=== PATIENT | male | born 1980 | race African-American/Black ===

== ENCOUNTER 2024-08-14 20:02 | Inpatient (IN) ==
--- NOTE | 2024-08-14 20:32 | Emergency Department Note ---
Impression & Plan Epileptic seizure, Elevated troponin, D-dimer, elevated, Hypomagnesemia, Alcohol abuse ED Provider Note NAME: ANNE RIVERA AGE: 44 SEX: M : 1980 ARRIVES VIA: Ambulance INFORMANT: Patient ED PROVIDER(S): Lucho Yancey DO CHIEF COMPLAINT: Seizure HPI: Patient is a 44-year-old male who presents to the ER with past medical history of hypertension, cirrhosis and alcohol abuse who presents to the ER for seizure. He was at [facility] re[facility] for alcohol abuse. He notes he has been drinking about a 12 pack a day for the past several weeks. Last drink was Saturday. Denies any benzo abuse or any other drug abuse. No other drug use. He notes that he did lose control of his bladder and he did bite his tongue. Does not remember what happened. He does not remember anything before hand or after. He denies any chest pain or shortness of breath preceding or following the incident. ADDITIONAL HISTORY OBTAINED: Per HPI Chronic Medical/Social Conditions Affecting Care: Per HPI PAST MEDICAL HISTORY:See Below PAST SURGICAL HISTORY:See Below FAMILY HISTORY:See Below SOCIAL HISTORY:See Below HOME MEDICATIONS:See Below ALLERGIES:See Below VITALS:See Below PHYSICAL EXAMINATION: GENERAL: Sitting up in bed, alert, well appearing, well nourished, no distress, non-toxic EYE EXAM: normal conjunctiva. PERRL and EOM's grossly intact. OROPHARYNX: no exudate, no erythema, lips, buccal mucosa, bite pagan along the lateral aspect of the tongue and mucous membranes are moist NECK: supple, no nuchal rigidity, no adenopathy, non-tender LUNGS: Clear to auscultation. Normal chest wall mechanics HEART: no murmurs, S1 normal and S2 normal ABDOMEN: abdomen soft, non-tender, normo-active bowel sounds, no masses, no rebound or guarding. BACK: Back is symmetrical on inspection and there is no deformity, no midline tenderness, no CVA tenderness. SKIN: no rashes and no bruising UPPER EXTREMITIES: upper extremities are grossly normal. LOWER EXTREMITIES: No pitting edema. NEURO EXAM: Normal sensorium, cranial nerves II-XII grossly intact, normal speech, no gross weakness of arms, no gross weakness of legs. MEDICAL DECISION MAKING: Patient is a 44-year-old male who presents to the ER brought in from [facility] for a seizure. His last drink was on Saturday. IV was established medicos obtained. Labs show no significant leukocytosis. Mild anemia 12. D-dimer was elevated at 1500. BMP with slightly low CO2 of 20. Mag was low at 1.5. Mild transaminitis with an AST of 90. Initial troponin was 40. Lipase at 156. CT of the head and cervical spine was negative. Chest x-ray was clean. Patient upon arrival was tachycardic but he was not hypertensive. He was not tremulous or shaky. He is not diaphoretic. He was given IV fluids and heart rate trended down. Systolic pressures did improve from 100-1 10. He did start having some tremors in the hands and was given IV Valium. He was updated at bedside. Uncertain of the origin of the elevated troponin however upon my preliminary interpretation of the CT angio the chest there is no large PEs. Question possible infiltrates but read is pending upon admission to the hospitalist. Will cover with IV Rocephin. Consults/Care Managements Discussions: Per [facility] Triage Nursing notes reviewed. Limited review of prior medical records performed Vital Signs: reviewed and remarkable for tachycardic Differential diagnosis: Differential diagnosis includes etiologies such as infection, hypoglycemia, electrolyte abnormalities, cardiac sources, intracerebral event, trauma, toxicologic, neurologic, as well as others were entertained. ER treatment provided: See below Diagnostics interpreted by me include EKG and cardiac monitoring as listed below: -Cardiac Monitoring: An order was placed for continuous cardiac monitoring. The monitor shows a rate of 130 with sinus rhythm. -ECG: Sinus tachycardia rate of 125 Normal axis No PVCs Right bundle branch block Nonspecific ST wave changes in the inferior lateral leads QTc 476 -Laboratory studies:Interpreted by me as stated above in MDM and shown below. Imaging studies: Xrays: As interpreted by me: Portable AP upright 1 view of the chest shows no focal infiltrate CTs show: CT head and cervical spine was negative per radiology CT of the chest preliminary shows questionable infiltrates Procedures:none Critical Care: None Past Med/Surg History Problem List (Updated 08/14/24 @ 23:25 by Lucho Yancey DO) Alcohol abuse (Acute) Hypomagnesemia (Acute) D-dimer, elevated (Acute) Elevated troponin (Acute) Epileptic seizure (Acute) Social History Smoking Status: Current every day smoker Tobacco Type: Cigarettes Results & Data (ED) Vital Signs Vital Signs - 24 hr 08/14/24 20:09 08/14/24 20:11 08/14/24 20:14 Temperature 36.8 C Temperature Source Oral Pulse Rate 128 H 132 H Pulse Rate from SpO2 Sensor Respiratory Rate 24 Blood Pressure 100/80 100/80 Blood Pressure Mean 87 86 Pulse Oximetry 96 Oxygen Delivery Method Room Air Sepsis Recent Fever Within 48 Hours No Sepsis New/Unexplained Change in Mental Status No Sepsis Action Taken by Nursing Physician Notified 08/14/24 20:14 08/14/24 20:21 08/14/24 21:09 Temperature Temperature Source Pulse Rate 124 H 105 H Pulse Rate from SpO2 Sensor 123 H 106 H Respiratory Rate 26 H 26 H Blood Pressure 110/78 Blood Pressure Mean 88 Pulse Oximetry 96 99 Oxygen Delivery Method Room Air Sepsis Recent Fever Within 48 Hours Sepsis New/Unexplained Change in Mental Status Sepsis Action Taken by Nursing Laboratory Data 08/14/24 20:25 08/14/24 20:25 Lab Results 08/14/24 Range/Units 20:25 WBC 10.25 (4.8-10.8) K/ul RBC 4.37 L (4.70-6.10) M/uL Hgb 12.0 L (14.0-18.0) g/dl Hct 36.1 L (42.0-52.0) % MCV 82.6 (80.0-100.0) fL MCH 27.5 (25.0-34.0) pg MCHC 33.2 (32.0-36.0) g/dL RDW Std Deviation 61.3 H (36.4-46.3) fL RDW Coeff of John 20.7 H (11.5-14.5) % Plt Count 138 (130-400) K/uL MPV 10.8 (9.4-12.4) fL Immature Gran % (Auto) 1.1 % Neut % (Auto) 80.7 % Lymph % (Auto) 6.8 % [place] % (Auto) 10.2 % Eos % (Auto) 1.1 % Baso % (Auto) 0.1 % Neut # (Auto) 8.27 H (1.40-6.50) K/uL Lymph # (Auto) 0.70 L (1.20-3.40) K/uL [place] # (Auto) 1.05 H (0.11-0.59) K/uL Eos # (Auto) 0.11 (0.00-0.50) K/uL Baso # (Auto) 0.01 (0.00-0.20) K/uL Immature Gran # (Auto) 0.11 (0.01-0.20) K/uL Anisocytosis Present D-Dimer 1530 H* (0-500) ug/L FEU Sodium 133 L (136-145) mmol/L Potassium 3.6 (3.5-5.1) mmol/L Chloride 100 (98-107) mmol/L Carbon Dioxide 20 L (21-32) mmol/L Anion Gap 13 H (3-11) BUN 11 (6-23) mg/dl Creatinine 1.24 (0.6-1.4) mg/dl Est Cr Clr Drug Dosing 60.8 ml/min Est GFR ( Amer) 82.0 ml/min Est GFR (Non-Af Amer) 70.8 ml/min BUN/Creatinine Ratio 8.9 L (10-20) Glucose 109 H (70-99(Fasting)) mg/dl Calcium 9.4 (8.6-10.3) mg/dl Magnesium 1.5 L (1.7-2.4) mg/dl Total Bilirubin 0.3 (0.2-1.0) mg/dl AST 96 H (13-39) U/L ALT 58 H (7-52) U/L Alkaline Phosphatase 55 (34-104) U/L Troponin I High Sens 38.8 H (0-20) pg/ml Total Protein 7.1 (6.0-8.3) gm/dl Albumin 4.4 (3.4-5.0) gm/dl Globulin 2.7 (2.5-4.0) gm/dl Albumin/Globulin Ratio 1.6 (0.9-2) Lipase 156 H (11-82) U/L Administered Medications Magnesium Sulfate/Dextrose (Magnesium Sulfate / D5w) 1 gm in 100 mls @ 50 mls/hr IV Q2H LALITO Stop: 08/15/24 02:44 Last Admin: 08/14/24 22:54 Dose: 50 mls/hr Documented By: BS Discontinued Medications Diazepam (Diazepam 5 Mg/Ml 10ml Vial) 2.5 mg IV NOW STA Stop: 08/14/24 22:53 Last Admin: 08/14/24 23:11 Dose: 2.5 mg Documented By: CINTHIA Sodium Chloride (Nss) 1,000 mls @ 999 mls/hr IV .Q1H1M LALITO Stop: 08/14/24 22:30 Last Infusion: 08/14/24 23:05 Dose: Infused Documented By: Admin: 08/14/24 21:28 Dose: 999 mls/hr Documented By: Infusion: 08/14/24 21:28 Dose: Infused Documented By: Admin: 08/14/24 20:42 Dose: 999 mls/hr Documented By: CINTHIA Thiamine HCl 100 mg/ Syringe 10 mls @ 2 mls/min IV NOW STA Stop: 08/14/24 22:05 Last Admin: 08/14/24 22:44 Dose: 2 mls/min Documented By: BRAD Folic Acid 1 mg/ Syringe 10 mls @ 5 mls/min IV NOW STA Stop: 08/14/24 22:02 Last Admin: 08/14/24 22:44 Dose: 5 mls/min Documented By: BRAD Ioversol (Optiray 320 125ml) 120 ml IV ONCE ONE Stop: 08/14/24 21:45 Last Admin: 08/14/24 21:44 Dose: 120 ml Documented By: KIANA Multivitamins (Multivitamin Tab) 1 tab PO NOW STA Stop: 08/14/24 22:02 Last Admin: 08/14/24 22:44 Dose: 1 tab Documented By: BRAD Potassium Chloride (Potassium Chloride Crtab 20 Meq Tabcr) 40 meq PO NOW STA Stop: 08/14/24 22:43 Last Admin: 08/14/24 22:54 Dose: 40 meq Documented By: BRAD Imaging Data Radiologist's Impression: Cervical Spine CT 08/14/24 20:26 Exam(s): CT C SPINE EXAM: CT Cervical Spine Without Intravenous Contrast CLINICAL HISTORY: Reason for exam: fall. TECHNIQUE: Axial computed tomography images of the cervical spine without intravenous contrast. CTDI is 38.24 mGy and DLP is 1253.86 mGy-cm. Automated exposure control was utilized for the study. A dose lowering technique was utilized adhering to the principles of ALARA. COMPARISON: No relevant prior studies available. FINDINGS: Vertebrae: Unremarkable. No acute fracture. Discs/spinal canal/neural foramina: No acute findings. No spinal canal stenosis. Soft tissues: Unremarkable. IMPRESSION: Normal cervical spine CT. Electronically signed by: Lucho Nicholas MD 08/14/24 21:[address] 08/14/24 20:26 Exam(s): CT HEAD Without Contrast EXAM: CT Head Without Intravenous Contrast CLINICAL HISTORY: Reason for exam: fall/trauma. TECHNIQUE: Axial computed tomography images of the head/brain without intravenous contrast. CTDI is 38.24 mGy and DLP is 1253.86 mGy-cm. Automated exposure control was utilized for the study. A dose lowering technique was utilized adhering to the principles of ALARA. COMPARISON: No relevant prior studies available. FINDINGS: Brain: Unremarkable. No hemorrhage. No significant white matter disease. No edema. Ventricles: Unremarkable. No ventriculomegaly. Bones/joints: Unremarkable. No acute fracture. Soft tissues: Unremarkable. Sinuses: Unremarkable as visualized. No acute sinusitis. Mastoid air cells: Unremarkable as visualized. No mastoid effusion. IMPRESSION: Normal head/brain CT. Electronically signed by: Lucho Nicholas MD 08/14/24 21:54 PM Discharge Plan Visit Data Chief Complaint: Seizure Stated Complaint: Seizure ED Provider: Lucho Yancey Discharge Problem: Epileptic seizure, Elevated troponin, D-dimer, elevated, Hypomagnesemia, Alcohol abuse Forms Stand Alone Forms: [facility] Referrals Referrals: PCP,NO [Physician] -
[2024-08-14] MEDS: SODIUM CHLORIDE 0.9% 1,000 ML IV SCH (20:42)
[2024-08-14 20:58] LABS: Albumin Globulin Ratio 1.6 (0.9-2); Albumin Level 4.4 gm/dl (3.4-5.0); BUN Creatinine Ratio 8.9 (10-20); Bilirubin,Total 0.3 mg/dl (0.2-1.0); Calcium 9.4 mg/dl (8.6-10.3); Creatinine Clr Calc Pharmacy 60.8 ml/min; Est GFR (Non-African American) 70.8 ml/min; Globulin 2.7 gm/dl (2.5-4.0); Magnesium 1.5 mg/dl (1.7-2.4); Potassium 3.6 mmol/L (3.5-5.1); Total Protein 7.1 gm/dl (6.0-8.3)
[2024-08-14 21:00] LABS: Hematocrit (blood only) 36.1 % (42.0-52.0); Mean Corpuscular Hemoglobin 27.5 pg (25.0-34.0); Mean Corpuscular Hgb Conc 33.2 g/dL (32.0-36.0); Mean Corpuscular Volume 82.6 fL (80.0-100.0); Mean Platelet Volume 10.8 fL (9.4-12.4); Platelet Count 138 K/uL (130-400); RDW Coefficient of Variation 20.7 % (11.5-14.5); RDW Standard Deviation 61.3 fL (36.4-46.3); Red Blood Count 4.37 M/uL (4.70-6.10); White Blood Count 10.25 K/ul (4.8-10.8)
[2024-08-14 21:01] LABS: Anisocytosis Present; Basophils # (auto) 0.01 K/uL (0.00-0.20); Basophils % (auto) 0.1 %; Eosinophils # (auto) 0.11 K/uL (0.00-0.50); Eosinophils % (auto) 1.1 %; Immature Granulocytes # (auto) 0.11 K/uL (0.01-0.20); Immature Granulocytes % (auto) 1.1 %; Lymphocytes % (auto) 6.8 %; Monocytes # (auto) 1.05 K/uL (0.11-0.59); Monocytes % (auto) 10.2 %; Neutrophils # (auto) 8.27 K/uL (1.40-6.50); Neutrophils % (auto) 80.7 %
[2024-08-14 21:04] LABS: Troponin I High Sensitivity 38.8 pg/ml (0-20)
[2024-08-14 21:11] LABS: D Dimer 1530 ug/L FEU (0-500)
[2024-08-14] MEDS: OPTIRAY 320 125ml IV ONE (21:44)
--- NOTE | 2024-08-14 21:55 | CT Scan Report ---
Exam(s): CT HEAD Without Contrast EXAM: CT Head Without Intravenous Contrast CLINICAL HISTORY: Reason for exam: fall/trauma. TECHNIQUE: Axial computed tomography images of the head/brain without intravenous contrast. CTDI is 38.24 mGy and DLP is 1253.86 mGy-cm. Automated exposure control was utilized for the study. A dose lowering technique was utilized adhering to the principles of ALARA. COMPARISON: No relevant prior studies available. FINDINGS: Brain: Unremarkable. No hemorrhage. No significant white matter disease. No edema. Ventricles: Unremarkable. No ventriculomegaly. Bones/joints: Unremarkable. No acute fracture. Soft tissues: Unremarkable. Sinuses: Unremarkable as visualized. No acute sinusitis. Mastoid air cells: Unremarkable as visualized. No mastoid effusion. IMPRESSION: Normal head/brain CT. Electronically signed by: Lucho Nicholas MD 08/14/24 21:54 PM
--- NOTE | 2024-08-14 21:56 | CT Scan Report ---
Exam(s): CT C SPINE EXAM: CT Cervical Spine Without Intravenous Contrast CLINICAL HISTORY: Reason for exam: fall. TECHNIQUE: Axial computed tomography images of the cervical spine without intravenous contrast. CTDI is 38.24 mGy and DLP is 1253.86 mGy-cm. Automated exposure control was utilized for the study. A dose lowering technique was utilized adhering to the principles of ALARA. COMPARISON: No relevant prior studies available. FINDINGS: Vertebrae: Unremarkable. No acute fracture. Discs/spinal canal/neural foramina: No acute findings. No spinal canal stenosis. Soft tissues: Unremarkable. IMPRESSION: Normal cervical spine CT. Electronically signed by: Lucho Nicholas MD 08/14/24 21:54 PM
[2024-08-14] MEDS ORDERED: diazePAM 5 MG/ML 10ML VIAL IV STA (22:13)
[2024-08-14] MEDS: FOLIC ACID 1 MG in SYRINGE 9.8 ML IV STA (22:44)
[2024-08-14] MEDS: MULTIVITAMIN TAB PO STA (22:44)
[2024-08-14] MEDS: THIAMINE HCL 100 MG in SYRINGE 9 ML IV STA (22:44)
[2024-08-14] MEDS ORDERED: ONDANSETRON INJ 2 MG/ML 2 ML VIAL IV PRN (22:50)
[2024-08-14] MEDS: POTASSIUM CHLORIDE CRTAB 20 MEQ TABCR PO STA (22:54)
[2024-08-14] MEDS: MAGNESIUM SULFATE / D5W 1 GM/100 ML BAG IV SCH (22:54)
--- NOTE | 2024-08-14 23:08 | History & Physical Report ---
Date of Service August 14, 2024 Assessment & Plan (1) Witnessed seizure-like activity: (2) Alcohol abuse: (3) Sinus tachycardia: (4) Elevated troponin: (5) Hypomagnesemia: (6) Transaminitis: (7) D-dimer, elevated: Plan Witnessed seizure-like activity/presumptive alcohol withdrawal- Patient reports last alcohol intake was 3 days ago, averaging a 12 pack daily for several weeks Patient did receive gabapentin 2.5 mg IV, thiamine 100 mg IV, folic acid 1 mg IV, normal saline 2 L bolus and multivitamin NPO from the ED Admit on gabapentin withdrawal protocol AWSS protocol with IV Ativan NSS + KCl 20 mill equivalents at 100 mL/h x 1 L Thiamine 100 mg p.o. daily Folic acid 1 mg p.o. daily Sinus tachycardia/elevated troponin- The patient will be admitted to telemetry for serial cardiac enzymes, serial EKG's, cardiac rhythm monitoring and a 2-D echocardiogram with Dopplers. Rate improving with administration of IV fluids Troponin 38.8 on admission, with follow-up pending. Likely type II, supply/demand mismatch associated with tachycardia. May also be secondary to seizure activity itself Replace potassium and magnesium Hypokalemia/hypomagnesemia- Magnesium 1.5, and potassium 3.6 before IV fluids Give magnesium sulfate 2 g IV and Klor-Con 40 mill equivalents p.o. Recheck laboratories in a.m. Transaminitis- AST 96, ALT 58, lipase 156 Repeat laboratories in a.m. Patient has reported history of cirrhosis Order ultrasound of right upper quadrant History of Present Illness Chief Complaint: The patient is referred to the emergency department from [facility], where he was undergoing rehab for alcohol use, and was noted to have a seizure earlier in the day prior to arrival. The patient has no memory of the days events, and does not recall any warning that he was about to have a seizure. Primary Care Provider: [facility] The patient is a 44-year-old male with a past medical history including alcohol abuse and history of tachycardia 2 years ago for which she was briefly on medications. He presents to the emergency department after having a seizure at [facility]. He reports that his last alcohol intake was 3 days ago. He denies any head trauma, and has no musculoskeletal complaints at this time. Past Med/Surg History Problem List (Updated 09/20/24 @ 23:41 by Karlos Dupont MD) Sinus tachycardia Witnessed seizure-like activity Transaminitis Alcohol abuse (Acute) Hypomagnesemia (Acute) D-dimer, elevated (Acute) Elevated troponin (Acute) Epileptic seizure (Acute) Social History Smoking Status: Current every day smoker Tobacco Type: Cigarettes Review of Systems Review of Systems: The patient denies chest pain, shortness of breath, dyspnea on exertion, cough, lower extremity swelling, sore throat, fevers, chills, sweats, weight change, fatigue, nausea, vomiting, diarrhea , constipation, abdominal pain, pelvic pain, blood in urine or stool, dysuria, urinary frequency or urgency, lightheadedness, dizziness, headache, rash, abnormal bruising or bleeding, imbalance, focal or generalized weakness, numbness or tingling in arms or legs, generalized arthralgias or myalgias, back or neck pain, or night sweats. The review of systems is otherwise negative other than for that already noted above, and at least 10 systems have been reviewed. Physical Exam Physical Exam: The patient is awake, alert and oriented 3, well developed and well nourished, normocephalic and atraumatic, lying in bed and in no acute distress. HEENT--PERRL, EOMI, mucous membranes and oropharynx dry. Neck--supple. No JVD. No bruits. Thyroid normal, trachea midline, no adenopathy. Heart--tachycardic, otherwise normal S1 and S2. No murmurs, rubs or gallops. Lungs--clear bilaterally, no respiratory distress, no accessory muscle use. Abdomen--normal bowel sounds and soft. Nontender. Nondistended, no hernias or masses, no organomegaly. Extremities--no cyanosis or clubbing. No edema. Dermatologic--normal skin turgor, normal color, no abnormal lymph nodes, no rash. Neurologic--cranial nerves II through XII grossly intact. Rheumatologic--normal range of motion. Psychiatric--normal affect. Results & Data Results & Data Vital Signs (Past 12 Hours) Vital Signs Temp Pulse Resp BP Pulse Ox O2 Del Method 08/14/24 21:09 105 H 26 H 110/78 99 08/14/24 20:21 124 H 26 H 96 08/14/24 20:14 Room Air 08/14/24 20:14 36.8 C 132 H 24 100/80 96 Room Air 08/14/24 20:11 128 H 08/14/24 20:09 100/80 Laboratory Results Laboratory Results WBC 10.25 K/ul (4.8-10.8) 08/14/24 20: RBC 4.37 M/uL (4.70-6.10) L 08/14/24 20: Hgb 12.0 g/dl (14.0-18.0) L 08/14/24 20: Hct 36.1 % (42.0-52.0) L 08/14/24 20: MCV 82.6 fL (80.0-100.0) 08/14/24 20: MCH 27.5 pg (25.0-34.0) 08/14/24 20: MCHC 33.2 g/dL (32.0-36.0) 08/14/24: RDW Std Deviation 61.3 fL (36.4-46.3) H 08/14/24: RDW Coeff of John 20.7 % (11.5-14.5) H 08/14/24 20: Plt Count 138 K/uL (130-400) 08/14/24 20: MPV 10.8 fL (9.4-12.4) 08/14/24 20: Immature Gran % (Auto) 1.1 % 08/14/24 20: Neut % (Auto) 80.7 % 08/14/24 20: Lymph % (Auto) 6.8 % 08/14/24 20: [place] % (Auto) 10.2 % 08/14/24 20: Eos % (Auto) 1.1 % 08/14/24 20:25 Baso % (Auto) 0.1 % 08/14/24 20: Neut # (Auto) 8.27 K/uL (1.40-6.50) H 08/14/24 20: Lymph # (Auto) 0.70 K/uL (1.20-3.40) L 08/14/24 20: [place] # (Auto) 1.05 K/uL (0.11-0.59) H 08/14/24 20: Eos # (Auto) 0.11 K/uL (0.00-0.50) 08/14/24 20:25 Baso # (Auto) 0.01 K/uL (0.00-0.20) 08/14/24 20:25 Immature Gran # (Auto) 0.11 K/uL (0.01-0.20) 08/14/24 20:25 Anisocytosis Present 08/14/24 20:25 D-Dimer 1530 ug/L FEU (0-500) H* 08/14/24 20:25 Sodium 133 mmol/L (136-145) L 08/14/24 20:25 Potassium 3.6 mmol/L (3.5-5.1) 08/14/24 20:25 Chloride 100 mmol/L (98-107) 08/14/24 20: Carbon Dioxide 20 mmol/L (21-32) L 08/14/24 20:25 Anion Gap 13 (3-11) H 08/14/24 20:25 BUN 11 mg/dl (6-23) 08/14/24 20: Creatinine 1.24 mg/dl (0.6-1.4) 08/14/24 20:25 Est Cr Clr Drug Dosing 60.8 ml/min 08/14/24 20:25 Est GFR ( Amer) 82.0 ml/min 08/14/24 20: Est GFR (Non-Af Amer) 70.8 ml/min 08/14/24 20:25 BUN/Creatinine Ratio 8.9 (10-20) L 08/14/24 20: Glucose 109 mg/dl (70-99(Fasting)) H 08/14/24 20: Calcium 9.4 mg/dl (8.6-10.3) 08/14/24 20: Magnesium 1.5 mg/dl (1.7-2.4) L 08/14/24 20:25 Total Bilirubin 0.3 mg/dl (0.2-1.0) 08/14/24 20:25 AST 96 U/L (13-39) H 08/14/24 20:25 ALT 58 U/L (7-52) H 08/14/24 20:25 Alkaline Phosphatase 55 U/L (34-104) 08/14/24 20:25 Troponin I High Sens 38.8 pg/ml (0-20) H 08/14/24 20:25 Total Protein 7.1 gm/dl (6.0-8.3) 08/14/24 20:25 Albumin 4.4 gm/dl (3.4-5.0) 08/14/24 20:25 Globulin 2.7 gm/dl (2.5-4.0) 08/14/24 20:25 Albumin/Globulin Ratio 1.6 (0.9-2) 08/14/24 20:25 Lipase 156 U/L (11-82) H 08/14/24 20:[address] 08/14/24 20:26 Exam(s): CT C SPINE EXAM: CT Cervical Spine Without Intravenous Contrast CLINICAL HISTORY: Reason for exam: fall. TECHNIQUE: Axial computed tomography images of the cervical spine without intravenous contrast. CTDI is 38.24 mGy and DLP is 1253.86 mGy-cm. Automated exposure control was utilized for the study. A dose lowering technique was utilized adhering to the principles of ALARA. COMPARISON: No relevant prior studies available. FINDINGS: Vertebrae: Unremarkable. No acute fracture. Discs/spinal canal/neural foramina: No acute findings. No spinal canal stenosis. Soft tissues: Unremarkable. IMPRESSION: Normal cervical spine CT. Electronically signed by: Lucho Nicholas MD 08/14/24 21:[address] 08/14/24 20:26 Exam(s): CT HEAD Without Contrast EXAM: CT Head Without Intravenous Contrast CLINICAL HISTORY: Reason for exam: fall/trauma. TECHNIQUE: Axial computed tomography images of the head/brain without intravenous contrast. CTDI is 38.24 mGy and DLP is 1253.86 mGy-cm. Automated exposure control was utilized for the study. A dose lowering technique was utilized adhering to the principles of ALARA. COMPARISON: No relevant prior studies available. FINDINGS: Brain: Unremarkable. No hemorrhage. No significant white matter disease. No edema. Ventricles: Unremarkable. No ventriculomegaly. Bones/joints: Unremarkable. No acute fracture. Soft tissues: Unremarkable. Sinuses: Unremarkable as visualized. No acute sinusitis. Mastoid air cells: Unremarkable as visualized. No mastoid effusion. IMPRESSION: Normal head/brain CT. Electronically signed by: Lucho Nicholas MD 08/14/24 21:54 PM Code Status & VTE Plan Code Status Full code VTE Prophylaxis Plan VTE Prophylaxis will be ordered: Yes PG Care Time/CCT Total # of Minutes Spent Total Time Spent with Patient: Total time spent is greater than 50% in coordination of care (as documented) at patient's floor/unit and/or counseling patient: Coding Level of Care Code 41756 INT INP/OBS CARE 3/75MIN Diagnoses Witnessed seizure-like activity R56.9 Alcohol abuse F10.10 Sinus tachycardia R00.0 Elevated troponin R79.89 Hypomagnesemia E83.42 Transaminitis R74.01 D-dimer, elevated R79.89
[2024-08-14] MEDS: diazePAM 5 MG/ML 10ML VIAL IV STA (23:11)
[2024-08-14] MEDS: NSS + 20MEQ KCL 20 MEQ/1,000 ML BAG IV SCH (23:23)
[2024-08-15] MEDS: cefTRIAXone SODIUM 2,000 MG/50 ML BAG IV STA (00:14)
--- NOTE | 2024-08-15 01:01 | CT Scan Report ---
Exam(s): CTA CHEST IV Amt: 120 ML [id number] EXAM: CT Angiography Chest With Intravenous Contrast CLINICAL HISTORY: Reason for exam: PE. TECHNIQUE: Axial computed tomographic angiography images of the chest with intravenous contrast. CTDI is 10.53 mGy and DLP is 420.39 mGy-cm. Automated exposure control was utilized for the study. A dose lowering technique was utilized adhering to the principles of ALARA. MIP reconstructed images were created and reviewed. COMPARISON: No relevant prior studies available. FINDINGS: Limitations: Exam slightly limited secondary to patient respiratory motion. Pulmonary arteries: Unremarkable. No large central pulmonary embolus. Aorta: No acute findings. No thoracic aortic aneurysm. Lungs: 1.5 x 1.3 cm pleural-based mass within the left upper lobe best appreciated on axial image 92 series 2. Diffuse changes COPD. No consolidation. Pleural space: Unremarkable. No significant effusion. No pneumothorax. Heart: Unremarkable. No cardiomegaly. No significant pericardial effusion. No evidence of RV dysfunction. Bones/joints: No acute fracture. No dislocation. Soft tissues: Unremarkable. Lymph nodes: Unremarkable. No enlarged lymph nodes. IMPRESSION: No pulmonary embolus Exam limited as described above Pleural-based mass measuring 1.5 x 1.3 cm represent a focal area of scarring. Underlying neoplasm cannot be entirely excluded. PET scan recommended for further evaluation. Electronically signed by: Lucho Nicholas MD 08/15/24 00:59 AM
[2024-08-15] MEDS ORDERED: LORazepam 2 MG/1 ML VIAL IV PRN ×3 (02:08)
[2024-08-15] MEDS ORDERED: Ativan IV Alcohol Withdrawal--Active Protocol IV PRN (02:08)
[2024-08-15] MEDS ORDERED: GABAPENTIN 600MG ALCOHOL WITHDRAWAL LOAD PO STA (02:08)
[2024-08-15] MEDS ORDERED: ACETAMINOPHEN 325 MG TAB PO PRN (02:08)
[2024-08-15] MEDS: Patient's ALLERGY Info needs ENTERED STA (02:39)
[2024-08-15] MEDS: GABAPENTIN 600 MG TAB PO ONE (02:57)
[2024-08-15 05:05] LABS: Albumin Level 3.6 gm/dl (3.4-5.0); BUN Creatinine Ratio 8.5 (10-20); Calcium 8.1 mg/dl (8.6-10.3); Est GFR (African American) 125.5 ml/min; Est GFR (Non-African American) 108.3 ml/min; Phosphorus 2.6 mg/dl (2.5-4.9); Potassium 3.3 mmol/L (3.5-5.1)
[2024-08-15 05:23] LABS: Troponin I High Sensitivity 89.6 pg/ml (0-20)
--- NOTE | 2024-08-15 07:44 | Ultrasound Report ---
ABDOMINAL ULTRASOUND, RIGHT UPPER QUADRANT HISTORY: Elevated LFTs Transaminitis, alcohol abuse history. COMPARISON: None. FINDINGS: Pancreas: The pancreas demonstrates a normal echotexture. Liver: Mildly enlarged with increased parenchymal echogenicity measuring up to 19 cm. No evidence of cirrhosis or hepatic mass.. A periportal lymph node incidentally noted measuring 2.0 x 0.8 cm. Gallbladder: No gallbladder wall thickening. Nonspecific trace perihepatic/pericholecystic fluid. No gallstones. CBD: 4 mm. Right kidney: Mild pelvocaliectasis of the right kidney. IMPRESSION: 1. Hepatomegaly with hepatic steatosis. 2. Unremarkable gallbladder. 3. Nonspecific trace perihepatic/pericholecystic fluid. 4. Mild pelvocaliectasis of the right kidney. ACT 112: Negative or not required by law. Electronically signed by: Fantasma Spencer M.D. 08/15/2024 7:43 AM
--- NOTE | 2024-08-15 07:44 | XRay Report ---
XR chest 1V portable HISTORY: 44 years-old Male Chest pain, nonspecific COMPARISON: CTA chest of same day TECHNIQUE: AP view of the chest FINDINGS: Heart size is normal. Emphysema with areas of linear multifocal scarring/fibrosis and architectural d istortion. No pneumothorax, pleural effusion or pulmonary edema. Bones appear grossly intact. IMPRESSION: 1. No acute process of the chest. 2. Emphysema with areas of fibrosis and pleural parenchymal scarring, better evaluated on the compari son CTA of the chest. ACT 112: Negative or not required by law. The above report was generated using voice recognition software. It may contain grammatical, syntax o r spelling errors. Electronically signed by: Fantasma Spencer M.D. 08/15/2024 7:43 AM
[2024-08-15] MEDS: ASPIRIN 81 MG ECTAB PO SCH (08:25)
[2024-08-15] MEDS: GABAPENTIN 100 MG CAP PO SCH (08:26)
[2024-08-15] MEDS: THIAMINE HCL 100 MG TAB PO SCH (08:26)
[2024-08-15] MEDS: FOLIC ACID 1 MG TAB PO SCH (08:26)
[2024-08-15] MEDS: POTASSIUM CHLORIDE / WTR 10 MEQ/100 ML PLCT IV ONE (09:14)
--- NOTE | 2024-08-15 10:55 | XCELERA ---
[id number] \\[id number]
--- NOTE | 2024-08-15 11:30 | Hospitalist Progress Note ---
Date of Service August 15, 2024 Assessment & Plan (1) Witnessed seizure-like activity: (2) Alcohol abuse: (3) Sinus tachycardia: (4) Elevated troponin: (5) Hypomagnesemia: (6) Transaminitis: (7) D-dimer, elevated: Plan 44-year-old male who presents to the ER with past medical history of hypertension, cirrhosis and alcohol abuse who presents to the ER for seizure. Witnessed seizure-like activity/presumptive alcohol withdrawal- - reports last alcohol intake was 3 days ago before admission , average of 12 pack daily - gabapentin withdrawal protocol - AWSS protocol with IV Ativan - NSS + KCl 20 mill equivalents at 100 mL/h x 1 L - Thiamine and Folic acid daily Elevated troponin- - Echo: Normal ventricular function, no wall abnormalities -Sinus tachycardia- resolved - Troponin trending down - Likely type II, supply/demand mismatch associated with tachycardia. May also be secondary to seizure activity itself -Monitor electrolytes Electrolytes disturbances - hypomagnesemia - resolved -Hypokalemia- replaced today Recheck laboratories in a.m. Hepatic steatosis. Transaminitis- -AST 96, ALT 58, lipase 156 -Patient has reported history of cirrhosis - ultrasound of right upper quadrant: Hepatomegaly with hepatic steatosis. DVT: SCDs Regular Diet Med surg/ tele Admission and Anticipated Discharge Date Admission Date: August 14, 2024 Supervising Physician Co-Signing Physician Notes Attending Physician Supervision Note: I independently interviewed and examined the patient and verified the burger history and physical, reviewed labs and image studies and agree with findings and care plan noted above. Subjective Seen this am, found awake. Refers feeling well Refer mild tenderness on his the back of his head where he fall. Denied any anxiety, tremors chest pain or palpations Review of Systems Review of Systems: as per HPI Physical Exam Constitutional: WD/WN, vitals as above Eyes: PERRL, conjunctivae normal, anicteric sclerae Respiratory: normal respiratory effort, lungs clear to auscultation Cardiovascular: RRR, no murmur, no edema Gastrointestinal (Abdomen): normal bowel sounds, soft, nontender, no hepatosplenomegaly Results & Data Results & Data Vital Signs (Past 12 Hours) Vital Signs Pulse Resp BP Pulse Ox Pulse Ox O2 Del Method O2 Del Method 08/15/24 06:59 69 08/15/24 04:40 97 Room Air 08/15/24 04:00 70 20 96/61 L 99 09/21/24 03:00 76 23 136/97 100 08/15/24 02:37 68 22 114/82 99 08/15/24 02:34 20 100 Room Air 08/15/24 02:34 72 20 100 Room Air 08/15/24 01:00 78 21 115/74 99 Room Air 08/15/24 00:05 87 08/15/24 00:00 79 21 137/80 98 Room Air Resident Activity Tracking Resident Involvement: Resident Care Provided Care Provided: Adult Hospital Medicine
--- NOTE | 2024-08-15 11:32 | Electrocardiogram Report ---
Test Reason : Blood Pressure : */* mmHG Vent. Rate : 125 BPM Atrial Rate : 125 BPM P-R Int : 134 ms QRS Dur : 90 ms QT Int : 330 ms P-R-T Axes : 69 35 89 degrees QTcB Int : 476 ms Sinus tachycardia Minimal voltage criteria for LVH, may be normal variant Nonspecific ST and T wave abnormality Abnormal ECG No previous ECGs available Confirmed by Chris Burciaga ([id number]) on 08/15/2024 11:31:51 AM Referred By: Claudia Bautista Confirmed By: Chris Burciaga
[2024-08-15] MEDS: GABAPENTIN 600 MG TAB PO SCH (18:11)
[2024-08-15] MEDS: NICOTINE 21 MG/24 HR TDSY TD SCH (18:11)
[2024-08-15] MEDS: MELATONIN 3 MG TAB PO PRN (22:07)
[2024-08-16 07:19] LABS: Albumin Level 3.6 gm/dl (3.4-5.0); BUN Creatinine Ratio 9.1 (10-20); Bilirubin Direct 0.1 mg/dl (0-0.2); Bilirubin,Total 0.3 mg/dl (0.2-1.0); Calcium 8.5 mg/dl (8.6-10.3); Creatinine Clr Calc Pharmacy 142.9 ml/min; Est GFR (African American) 137.2 ml/min; Est GFR (Non-African American) 118.4 ml/min; Magnesium 1.7 mg/dl (1.7-2.4); Phosphorus 3.4 mg/dl (2.5-4.9); Potassium 3.7 mmol/L (3.5-5.1); Total Protein 6.1 gm/dl (6.0-8.3)
--- NOTE | 2024-08-16 12:25 | Electrocardiogram Report ---
Test Reason : Blood Pressure : */* mmHG Vent. Rate : 65 BPM Atrial Rate : 65 BPM P-R Int : 160 ms QRS Dur : 94 ms QT Int : 456 ms P-R-T Axes : 66 63 66 degrees QTcB Int : 474 ms Normal sinus rhythm Voltage criteria for left ventricular hypertrophy Abnormal ECG When compared with ECG of 14-Aug-2024 20:14, Vent. rate has decreased by 60 bpm T wave amplitude has increased in Inferior leads Nonspecific T wave abnormality no longer evident in Lateral leads Confirmed by Chris Burciaga ([id number]) on 08/16/2024 12:25:01 PM Referred By: Claudia Bautista Confirmed By: Chris Burciaga
[2024-08-16] MEDS: GABAPENTIN 300 MG CAP PO STA (12:37)
--- NOTE | 2024-08-16 12:38 | Discharge Summary ---
Date of Service August 16, 2024 Admission HPI Per Admitting Provider The patient is a 44-year-old male with a past medical history including alcohol abuse and history of tachycardia 2 years ago for which she was briefly on medications. He presents to the emergency department after having a seizure at [facility]. He reports that his last alcohol intake was 3 days ago. He denies any head trauma, and has no musculoskeletal complaints at this time. Principal Diagnosis Alcohol withdrawal seizures Discharge Exam Constitutional WD/WN, vitals as above Eyes PERRL, conjunctivae normal, anicteric sclerae Respiratory normal respiratory effort, lungs clear to auscultation Cardiovascular RRR, no murmur, no edema Gastrointestinal (Abdomen) normal bowel sounds, soft, nontender, no hepatosplenomegaly Discharge Data Allergies Allergy/AdvReac Type Severity Reaction Status Date / Time No Known Allergies Allergy Verified 08/15/24 02:35 Consultations 08/14/24 22:06 ED Decision to Admit Stat Ordered Studies 08/14/24 20:26 CT cervical spine wo con Stat CT head/brain wo con Stat 08/14/24 21:10 CT angio chest PE protocol Stat 08/14/24 23:47 US abdomen [US liver] Routine Hospital Course (1) Witnessed seizure-like activity: (2) Alcohol abuse: (3) Sinus tachycardia: (4) Elevated troponin: (5) Hypomagnesemia: (6) Transaminitis: (7) D-dimer, elevated: Plan 44-year-old male who presents to the ER with past medical history of hypertension, cirrhosis and alcohol abuse who presents to the ER for seizure. Witnessed seizure-like activity/presumptive alcohol withdrawal- - Presented from [facility]. - reports last alcohol intake was 3 days ago before admission , average of 12 pack daily - kept on gabapentin withdrawal protocol and AWSS protocol - Continued Thiamine and Folic acid daily - Discharged on preadmission dose of Gabapentin 300 mg three times a day Elevated troponin- - resolved - Echo: Normal ventricular function, no wall abnormalities - Sinus tachycardia- resolved - Troponin trending down - Likely type II, supply/demand mismatch associated with tachycardia. May also be secondary to seizure activity itself Hepatic steatosis: Transaminitis- -AST 96, ALT 58, lipase 156 -Patient has reported history of cirrhosis - ultrasound of right upper quadrant: Hepatomegaly with hepatic steatosis. Total Time Total Time Spent Total Time Spent (In Minutes): see attending attestation Discharge Plan Discharge Items Patient Disposition: Drug & Alcohol Rehab Reason For Visit: ALCOHOL WITHDRAWL SEIZURE,HYPOMAG,TACHYCARDIA, Discharge Diagnosis: Alcohol withdrawal seizure Activity: Per Instructions section Non-emergency contact: Primary Care Provider Call non-emergency contact if: you have any medication questions Follow-up/Referrals: [facility] [Primary Care Provider] - Diet: Regular Addtl Attending Provider Instructions: 44-year-old male who presents to the ER with past medical history of hypertension, cirrhosis and alcohol abuse who presents to the ER for seizure. Witnessed seizure-like activity/presumptive alcohol withdrawal- - reports last alcohol intake was 3 days ago before admission , average of 12 pack daily - gabapentin withdrawal protocol - AWSS protocol with IV Ativan - Scoring ELEANOR -0 - Continue Thiamine and Folic acid daily - Gabapentin 300 mg three times a day Elevated troponin- - resolved - Echo: Normal ventricular function, no wall abnormalities -Sinus tachycardia- resolved - Troponin trending down - Likely type II, supply/demand mismatch associated with tachycardia. May also be secondary to seizure activity itself Hepatic steatosis: Transaminitis- -AST 96, ALT 58, lipase 156 -Patient has reported history of cirrhosis - ultrasound of right upper quadrant: Hepatomegaly with hepatic steatosis. Pending Studies at Discharge: No Stand-Alone Forms: My [facility] Skilled Items Patient informed of condition?: Yes DNR: No Discharge Level of Care: Other Communicable Disease: No Discharge Prognosis: Stable Lines: None Urinary Catheter: No Medications and DC Order Prescriptions: Continued multivitamin Tablet 1 tab PO DAILY clonidine HCl 0.1 mg tablet 0.1 mg PO TID PRN (Reason: Withdrawal Symptoms) acetaminophen 325 mg Tablet 650 mg PO QID PRN (Reason: Pain/Headache) diphenhydramine HCl 50 mg Capsule 50 mg PO Q6H PRN (Reason: Allergies/Rash) trazodone 50 mg tablet 50 mg PO HS PRN (Reason: Insomnia) polyethylene glycol 3350 [Miralax] 17 gram Powder In Packet 17 g PO DAILY PRN (Reason: Constipation) Rx Instructions: Stir and dissolve in any 4-8 ounces of beverage (cold, hot or room temperature) ondansetron HCl 4 mg Tablet 8 mg PO Q8H PRN (Reason: Nausea/Vomiting) vitamin A and D Ointment 1 applic TOPICAL QID PRN (Reason: Skin Irritation/Protection) loperamide 2 mg Tablet 2 mg PO BID PRN (Reason: Diarrhea) Rx Instructions: administer after each loose stool until symptoms controlled; do not exceed 8 mg per 24 hrs cyanocobalamin (vitamin B-12) [Vitamin B-12] 1,000 mcg Tablet 1,000 mcg PO DAILY hydroxyzine pamoate 50 mg Capsule 50 mg PO TID PRN (Reason: Anxiety) bacitracin 500 unit/gram Ointment 1 applic TOPICAL QID PRN (Reason: Skin Infection/Abrasion) famotidine 20 mg tablet 20 mg PO DAILY PRN (Reason: Upset Stomach/GERD) hydrocortisone 1 % Cream 1 applic TOPICAL BID PRN (Reason: Itching/Rash) diphenhydramine HCl [Benadryl Allergy] 25 mg Tablet 25 mg PO Q6H PRN (Reason: Allergies/Rash) nicotine 21 mg/24 hr Patch 24 Hour 1 patch TRANSDERMAL DAILY docusate sodium 100 mg Capsule 100 mg PO DAILY PRN (Reason: Constipation/Stool Softner) gabapentin 300 mg capsule 300 mg PO TID sertraline 25 mg tablet 25 mg PO DAILY vitamin B complex Tablet 1 tab PO DAILY folic acid 1 mg tablet 1 mg PO DAILY bisacodyl 5 mg Tablet,Delayed Release (Dr/Ec) 15 mg PO DAILY PRN (Reason: Constipation) calcium carbonate 500 mg calcium (1,250 mg) Tablet,Chewable 500 mg PO QID PRN (Reason: Indigestion/Dyspepsia) ibuprofen 600 mg Tablet 600 mg PO Q6H PRN (Reason: Pain/Headache) dicyclomine 10 mg Capsule 10 mg PO TID PRN (Reason: GI Cramps/Spasms) Excedrin Migraine 250-250-65 mg Tablet 2 tab PO DAILY PRN (Reason: Headache) loratadine 10 mg Tablet 10 mg PO DAILY PRN (Reason: Seasonal Allergies) simethicone 80 mg Tablet,Chewable 160 mg PO BID PRN (Reason: Gas/Cramps) guaifenesin 400 mg Tablet 400 mg PO Q6H PRN (Reason: Cough/Mucus) menthol 5 mg Lozenge 5 mg mucous membrane Q2H PRN (Reason: Sore Throat) aluminum-magnesium hydroxide 200-200 mg/5 mL Suspension 20 ml PO BID PRN (Reason: Indigestion/GERD) melatonin 5 mg Tablet 5 mg PO HS PRN (Reason: Sleep) camphor-menthol 0.2-3.5 % Gel 1 applic TOPICAL QID PRN (Reason: Muscle Pain) Rx Instructions: rub in gently and completely naloxone [Narcan] 4 mg/actuation [place],Non-Aerosol 4 mg INTRANASAL DAILY PRN (Reason: Opiate Overdose) Magnesium Hydroxide 8% 30 ml PO DAILY PRN (Reason: Constipation) Discharge Orders: Discharge Order (Routine); Ordered 08/16/24 Ordered By: Ashley Hay/Other Patient Handouts: Gabapentin Oral Tablet, Self-Care for Seizures Admission Data Admit Date/Time: 08/14/24 23:07 Attending Provider: Camelia Ferrer Admit Provider: Karlos Dupont Primary Care Provider: [facility] Other Providers: Karlos Dupont Supervising Physician Co-Signing Physician Notes Attending Physician Supervision Note: I independently interviewed and examined the patient and verified the burger history and physical, reviewed labs and image studies and agree with findings and care plan noted above.
[2024-08-16] MEDS ORDERED: GABAPENTIN 400 MG CAP PO SCH (18:00)
[2024-08-17] MEDS ORDERED: GABAPENTIN 100 MG CAP PO SCH (18:00)
== END 2024-08-16 13:46 | disposition alcohol treatment (31) | DRG 100 ==
LOC: ED 20:02 → EDINP 23:07 → SUATTDRO 23:07 → 2N 08-15 02:04